=== PATIENT | female | born 1980 | race African-American/Black ===

== ENCOUNTER 2020-07-06 06:21 | Inpatient (IN) | payer OTHER ==
[2020-07-06] VITALS (8 sets, daily range): BP systolic 117–129; BP diastolic 62–90
[~2020-07-06] VITALS: Ht 175.3 cm; Wt 73.9 kg
[~2020-07-06 06:21] MED LIST: LIDOCAINE 1% MDV 20ML VIAL SQ PRN
[2020-07-06 06:51] LABS: APPEARANCE, URINE CLEAR (CLEAR); BACTERIA, URINE AUTO NEGATIVE (NEGATIVE); BILIRUBIN, URINE AUTO NEGATIVE (NEGATIVE); BLOOD, URINE BLOOD NEGATIVE (NEGATIVE); COLOR, URINE YELLOW (YELLOW); GLUCOSE, URINE (UA) AUTO NEGATIVE (NEGATIVE); KETONE, URINE AUTO NEGATIVE (NEGATIVE); LEUKOCYTE ESTERASE, URINE AUTO NEGATIVE (NEGATIVE); MUCUS, URINE SMALL (NEGATIVE); NITRITE, URINE AUTO NEGATIVE (NEGATIVE); PROTEIN, URINE AUTO NEGATIVE (NEGATIVE); RBC, URINE AUTO 0 /HPF (0-3); SPECIFIC GRAVITY URINE AUTO 1.028 (1.002-1.035); SQUAMOUS EPITHELIAL CELL UR AU 1 /HPF (0-6); UROBILINOGEN, URINE AUTO 0.2 mg/dL (0.0-2.0); WBC, URINE AUTO 1 /HPF (0-3)
[2020-07-06 07:00] LABS: HEMATOCRIT 36.2 % (36.0-47.0); MEAN CORPUSCULAR HGB CONC 33.1 g/dl (32.0-36.5); MEAN CORPUSCULAR VOLUME 90.5 fl (80.0-96.0); PLATELET COUNT, AUTOMATED 318 10^3/uL (150-450); WHITE BLOOD COUNT 5.6 10^3/uL (4.0-10.0)
[2020-07-06] MEDS ORDERED: LR 1,000 ML IV ONE (07:00)
[2020-07-06] MEDS ORDERED: MIDAZOLAM INJ 2MG/2ML VIAL (J2250 PER 1MG) As Ordered ONE (07:15)
[2020-07-06] MEDS ORDERED: ONDANSETRON 4MG/2ML VIAL As Ordered ONE (07:15)
[2020-07-06] MEDS ORDERED: propofoL 200 MG/20 ML VIAL As Ordered ONE (07:15)
[2020-07-06] MEDS ORDERED: KETOROLAC 60MG 2ML VIAL As Ordered ONE (07:15)
[2020-07-06] MEDS ORDERED: dexameTHASONE 4 MG/ML 1ML VIAL (J1100 PER 1MG) As Ordered ONE (07:15)
[2020-07-06] MEDS ORDERED: ACETAMINOPHEN 1000MG 100ML IV BTL (OFIRMEV) (J0131 PER 10MG) As Ordered ONE (07:15)
[2020-07-06] MEDS ORDERED: ROCURONIUM BROMIDE 50 MG/5 ML VIAL As Ordered ONE ×2 (07:15→08:58)
[2020-07-06] MEDS ORDERED: SUGAMMADEX SODIUM 500 MG/5 ML VIAL (BRIDION) As Ordered ONE (07:15)
[2020-07-06] MEDS ORDERED: LIDOCAINE 2% 100MG/5ML SDV (FOR ANES.) As Ordered ONE (07:15)
[2020-07-06] MEDS ORDERED: fentaNYL 100 MCG/2 ML INJECTION (J3010) As Ordered ONE (07:15)
[2020-07-06] MEDS ORDERED: BUPIVACAINE LIPOSOME/PF 1.3% 20ML VIAL (13.3MG/ML)(EXPAREL)(C9290 PER1MG) As Ordered ONE (07:31)
[2020-07-06] MEDS ORDERED: HYDROmorphone HCL 2 MG/ML 1ML VIAL (J1170) As Ordered ONE (08:27)
[2020-07-06] MEDS ORDERED: fentaNYL 100 MCG/2 ML INJECTION (J3010) IV PRN (11:30)
[2020-07-06] MEDS ORDERED: oxyCODONE 5MG TAB PO PRN (11:30)
[2020-07-06] MEDS ORDERED: LR 1,000 ML IV SCH (11:30)
[2020-07-06] MEDS ORDERED: ONDANSETRON 4MG/2ML VIAL IV PRN (11:30)
[2020-07-07 02:00] VITALS: BP 102/57
[2020-07-07 06:00] VITALS: BP 119/75
[2020-07-07 06:37] LABS: BASO % 0.3 % (0.0-1.0); EOS # 0.1 10^3/uL (0.0-0.5); EOS % 0.8 % (0.0-3.0); HEMATOCRIT 28.3 % (36.0-47.0); LYMPH # 2.3 10^3/uL (1.5-5.0); LYMPH % 22.6 % (24.0-44.0); MEAN CORPUSCULAR HEMOGLOBIN 29.9 pg (27.0-33.0); MEAN CORPUSCULAR HGB CONC 32.9 g/dl (32.0-36.5); MONO # 0.8 10^3/uL (0.0-0.8); MONO % 7.7 % (0.0-5.0); NEUTROPHILS % 68.1 % (36.0-66.0); PLATELET COUNT, AUTOMATED 246 10^3/uL (150-450); RED BLOOD COUNT 3.11 10^6/uL (4.00-5.40); WHITE BLOOD COUNT 10.3 10^3/uL (4.0-10.0)
[2020-07-07 06:43] LABS: HEMOGLOBIN 9.3 g/dl (12.0-15.5)
[2020-07-07 10:00] VITALS: BP 108/65
[2020-07-07 14:00] VITALS: BP 132/74
--- NOTE | 2020-07-07 19:19 | IPNPDOC ---
Text Note Date of Service The patient was seen on 07/07/20. NOTE 40yo G0 POD#1 s/p LORI, BS, cystoscopy for symptomatic fibroid uterus and cerv ical dysplasia. Patient reports her pain has been controlled on the toradol and percocet, she did not require any dilaudid overnight. She has ambulated OOB but has been using a walker due to pain. She had her nye removed and has been able to void spontaneously. She has been tolerating a regular diet well. She reports +flatus, denies BM. She reports only spotting VB. ROS: Denies fevers, chills, COX, chest pain, SOB, n/v, leg pain Vitals: Normotensive, afebrile UOP: adequate on nye, has met DTV PE: Gen: well-appearing, resting comfortably in bed in NAD HEENT: NC/AT, airway patent and self-maintained ABD: soft, non-distended, appropriately tender to palpation Incision: dressing removed, steri strips in place, incision well-approximated : no edema, scant bleeding noted on peripad A/P: 40yo G0 POD#1 s/p LORI, BS cysto for [facility] clinically doing well. CBC showing appropriate decrease from EBL. Normotensive, afebrile. -Transition to all oral pain medications -Abdominal binder for pain control/support to stop using walker -Encourage regular diet and PO hydration as tolerated -Encourage ambulation OOB as tolerated -Monitor vitals q4h and PRN -Discharge planning for tomorrow VS,Fishbone, I+O VS, Fishbone, I+O Laboratory Tests 07/07/20 06:08 Vital Signs Date Time Temp Pulse Resp B/P (MAP) Pulse Ox O2 Delivery O2 Flow Rate FiO2 07/07/20 17:29 16 07/07/20 14:00 97.4 76 132/74 (93) 99 Room Air 07/06/20 11:02 10 I&O- Last 24 Hours up to 6 AM 07/07/20 06:00 Intake Total 4020 ml Output Total 3700 ml Balance 320 ml AMIE LOPEZ DO Jul 07, 2020 19:19
--- NOTE | 2020-07-07 19:45 | ROOPDOC ---
[facility] Report Of Operation Report of Operation DATE OF PROCEDURE: 07/06/20 PREPROCEDURE DIAGNOSES: 1. Symptomatic fibroid uterus 2. Cervical carcinoma in situ 3. Pelvic pain 4. Dyspareunia POSTPROCEDURE DIAGNOSES: 1. Symptomatic fibroid uterus 2. Cervical carcinoma in situ 3. Pelvic pain 4. Dyspareunia PROCEDURE: 1. Total abdominal hysterectomy 2. Bilateral salpingectomy 3. Cystoscopy SURGEON: So Fulton DO FINISHING TRIMMER: Yonis Zepeda DO ANESTHESIA: General ESTIMATED BLOOD LOSS: Approximately 550 mL. FLUIDS: 1800ml LR URINE OUTPUT: 100ml COMPLICATIONS: None FINDINGS: Enlarged lobular multifibroid uterus weighing 994g. Normal bilateral ovaries and fallopian tubes. Uterus was so large, amputation of the uterus from the cervix was performed. The cervix was removed separately intact. The vaginal cuff required intra-abdominal and vaginal repair for hemostasis to close due to size of uterus and cervix. Normal-appearing appendix seen. Cystoscopy revealed brisk bilateral ureteral jet flow and no defects/sutures in the bladder. DESCRIPTION OF PROCEDURE: The risks, benefits, indications and alternatives of the procedure were reviewed with the patient and informed consent was obtained. The patient was taken to the operating room where general anesthesia was obtained without difficulty. The patient was then placed in the low lithotomy position using Eric Stirrups. An exam under anesthesia was then performed and significant for a midline, _18_- week sized, axial uterus. An abdominal and vaginal prep were then performed in the normal, sterile fashion and a nye catheter was placed. A Pfannenstiel skin incision was then made and carried down to the underlying layer of fascia using electrocautery. The fascia was entered with Bovie cautery and extended bilaterally. The underlying rectus fascia and muscle layers were then in the midline and peritoneum identified, grasped with two hemostats, and entered sharply using Metzenbaum scissors. The peritoneal incision was then extended superiorly and inferiorly using Bovie cautery. Manual and visual examination of the pelvis was notable for a large lobular fibroid uterus, normal appendix, normal-appearing bilateral ovaries and fallopian tubes. The bowel was then packed from the operating field using moist laps. A Mobius self-retaining retractor was placed into the abdominal cavity and opened for pelvic exposure. Two Peon clamps were placed across each fallopian tube and utero-ovarian ligament immediately lateral to the uterus, and the uterus was elevated to the level of the incision. The round ligaments were bilaterally grasped with Grundy clamps near the uterine cornua. The round ligaments were then suture ligated with 0-vicryl and transected using electrocautery bilaterally, allowing entry into the broad ligament. The anterior leaves of the broad ligament were then incised along the bladder reflection on both sides to the midline, and the posterior leaves of the broad ligament were incised 1-2 cm inferiorly. The pararectal spaces were then developed. A window was created in an avascular plane of the broad ligament, below and parallel to the IP ligament, and above the ureter. The fallopian tube and utero-ovarian ligaments were then doubly clamped as close as possible to the uterine corpus, transected with the Ligasure, and suture ligated with O-vicryl on both sides. The pedicles were then reinspected, with excellent hemostasis noted. The bladder was then gently dissected off the lower uterine segment and cervix using a sponge stick, until the endopelvic fascia was visualized. The uterine arteries were then identified along the lateral aspects of the uterus at the level of the isthmus and skeletonized. The uterine arteries were then doubly clamped, transected with the Ligasure, and suture ligated on both sides. Hemostasis was assured. The cardinal ligaments were then clamped, transected using the Ligasure, and suture ligated bilaterally. Finally, the uterosacral ligaments were clamped, transected with the Ligasure, and suture ligated bilaterally. Hemostatis was noted. Given the size and bulk of the uterus, decision was then made to proceed with amputation of the uterus. The uterine fundus was sharply amputated from the cervix and the multi-lobular uterus freed from the pelvis. The cervix was then grasped with Eliseo clamps. Curved clamps were placed across the vagina just under the cervix and the uterus and cervix were amputated using Radha scissors. The vaginal cuff angles were closed and transfixed to the ipsilateral uterosacral and cardinal ligaments. The remainder of the cuff was closed using 0-vicryl in an interrupted fashion with care given to incorporate the anterior pubocervical fascia and the posterior rectovaginal fascia. The abdomen was then copiously irrigated with warm saline. All pedicles were noted to be hemostatc. All packing and instruments were removed from the ab domen. A cystoscopy was performed notable for bilateral brisk ureteral jet flow and no lesions/defects of the bladder mucosa. The nye catheter was replaced after completion of the cystoscopy. Gloves were exchanged and attention returned to the abdomen. The fascia was reapproximated using 0-vicryl in a running fashion. The subcutaneous tissue was reapproximated using 3-0 vicryl in an interrupted fashion. The skin was closed with 4-0 monocryl in a running fashion. A manual exam was then performed and the vagina demonstrated excellent suspension and elevation however significant bleeding was noted. A speculum was placed into the vagina which revealed part of the vaginal mucosa had failed to incorporate into the vaginal cuff. The vaginal cuff was made hemostatic with 0- vicryl in running, locked fashion. A vaginal sweep was performed and confirmed no retained foreign objects remained in the vagina. At the completion of the case, sponge, lap, needle, and instrument counts were correct x2. The patient was awoken from anesthesia, extubated and taken to PACU in stable condition. SO FULTON DO Jul 06, 2020 11:06
[2020-07-07 22:00] VITALS: BP 120/80
[2020-07-08 02:00] VITALS: BP 147/73
[2020-07-08 04:00] VITALS: BP 136/78
[2020-07-08 06:00] VITALS: BP 107/75
--- NOTE | 2020-07-08 08:15 | IPNPDOC ---
Text Note Date of Service The patient was seen on 07/08/20. NOTE 40yo G0 POD#2 s/p LORI, BS, cystoscopy for symptomatic fibroid uterus and cervical dysplasia. Patient reports having a very difficult night and endorsing minimal support from nursing staff. She is very upset that she was not able to shower yesterday evening and that nursing staff would not come assist her. She was given an abdominal binder but was not instructed on how to apply or assisted in placing by nursing staff and therefore did not use it. (Nursing staff reported to provider that patient did not tolerate abdominal binder due to pain.) She continued to use the walker to assist with ambulation only to the bathroom overnight, she did not ambulate around the waller. She also endorsed chest pain overnight but it has since resolved after taking maalox and resting i n bed. She has continued to void spontaneously several times overnight. She has been tolerating a regular diet well. She reports +flatus, denies BM. She reports only spotting VB. Given her frustrations with her care and limitations overnight, she is concerned about discharge home today. ROS: Denies fevers, chills, COX, chest pain, SOB, n/v, leg pain Vitals: Normotensive, afebrile UOP: adequate with multiple spontaneous voids PE: Gen: well-appearing, resting comfortably in bed in NAD HEENT: NC/AT, airway patent and self-maintained ABD: soft, non-distended, appropriately tender to palpation Incision: steri strips in place, incision well-approximated : no edema, scant bleeding noted on peripad Ext: SCDs on and working, no calf tenderness, no edema A/P: 40yo G0 POD#2 s/p LORI, BS cysto for [facility]. Normotensive, afebrile and clinically stable. I assisted patient with placement of abdominal binder and patient was able to get out of bed without assistance and significant improvement in pain with ambulation without need for walker. She walked around the waller with me and then was able to sit in chair at bedside endorsing much improvement in her pain. We discussed discharge planning that if she feels more comfortable after eating, getting a shower, and gains more confidence with ambulation using the abdominal binder, will discharge home today but if she does not feel confident in going home, will consider discharge home tomorrow. -Continue current pain mgmt -Abdominal binder for pain control/support - nursing staff asked to remove walkers from room to avoid use -Encourage regular diet and PO hydration as tolerated -Encourage ambulation OOB as tolerated -Monitor vitals q4h and PRN -Discharge planning for later today/tomorrow VS,Fishbone, I+O VS, Fishbone, I+O Vital Signs Date Time Temp Pulse Resp B/P (MAP) Pulse Ox O2 Delivery O2 Flow Rate FiO2 07/08/20 06:00 98.4 63 18 107/75 (86) 99 Room Air 07/06/20 11:02 10 I&O- Last 24 Hours up to 6 AM 07/08/20 06:00 Intake Total 1720 ml Output Total 2450 ml Balance -730 ml AMIE LOPEZ DO Jul 08, 2020 08:15
[2020-07-08 10:00] VITALS: BP 132/80
[2020-07-08 14:00] VITALS: BP 134/81
--- NOTE | 2020-07-08 15:44 | DS.PDOC ---
Discharge Summary General Date of Admission Jul 06, 2020 at 06:21 Date of Discharge 07/08/2020 Attending Physician: AMIE LOPEZ DO Discharge Summary PROCEDURES PERFORMED DURING STAY: 1. Total abdominal hysterectomy 2. BIlateral salpingectomy 3. Cystoscopy ADMITTING DIAGNOSES: 1. Symptomatic fibroid uterus 2. Pelvic pain 3. Cervical dysplasia 4. Dyspareunia DISCHARGE DIAGNOSES: 1. Symptomatic fibroid uterus 2. Pelvic pain 3. Cervical dysplasia 4. Dyspareunia 5. Anemia COMPLICATIONS/CHIEF COMPLAINT: Fibroid Uterus,Cervical Dysplasia. HOSPITAL COURSE: Millie was admitted to the pre-op surgical unit where she was prepped for surgery. She was then taken to the operating room where she underwent and uncomplicated total abdominal hysterectomy, bilateral salpingectomy, and cystoscopy. She was then awoken from general anesthesia and taken to the PACU for immediate post-operative recovery. She was then transferred to the inpatient surgical waller for continued post-operative care. She was transitioned to oral pain medications and had her nye catheter removed on post-operative day #1. On day of discharge, she was ambulating, tolerating a regular diet, voiding spontaneously, and pain controlled on oral pain medications. She was discharged home in stable condition with strict return precautions reviewed. DISCHARGE MEDICATIONS: Please see below. ALLERGIES: Please see below. PHYSICAL EXAMINATION ON DISCHARGE: Please see progress note from 07/08/2020 VITAL SIGNS: Please see below. LABORATORY DATA: Please see below. ACTIVITY: Pelvic rest x6 weeks, no lifting >15lbs for 6-8 weeks DIET: regular as tolerated DISCHARGE PLAN: to home with support from family/friends DISPOSITION: to home DISCHARGE CONDITION: Stable TIME SPENT ON DISCHARGE: Greater than 20 minutes. Vital Signs/I&Os Vital Signs Date Time Temp Pulse Resp B/P (MAP) Pulse Ox O2 Delivery O2 Flow Rate FiO2 07/07/20 17:29 16 07/07/20 14:00 97.4 76 132/74 (93) 99 Room Air 07/06/20 11:02 10 I&O- Last 24 Hours up to 6 AM 07/07/20 06:00 Intake Total 4020 ml Output Total 3700 ml Balance 320 ml Laboratory Data Labs 24H Laboratory Tests 2 07/07/20 06:08: Immature Granulocyte % (Auto) 0.5, Neutrophils (%) (Auto) 68.1H, Lymphocytes (%) (Auto) 22.6L, Monocytes (%) (Auto) 7.7H, Eosinophils (%) (Auto) 0.8, Basophils (%) (Auto) 0.3, Neutrophils # (Auto) 7.0, Lymphocytes # (Auto) 2.3, Monocytes # (Auto) 0.8, Eosinophils # (Auto) 0.1, Basophils # (Auto) 0.0, Nucleated Red Blood Cells % (auto) 0.0 CBC/BMP Laboratory Tests 07/07/20 06:08 Discharge Medications No Active Prescriptions or Reported Meds Allergies Coded Allergies: No Known Allergies (Unverified , 06/29/20) AMIE LOPEZ DO Jul 07, 2020 19:57
== END 2020-07-08 18:03 | disposition home or self-care (01) | DRG 743 ==
LOC: M OR 06:21 → M MSPAV 12:27
PROC: 0UT70ZZ Resection of Bilateral Fallopian Tubes, Open Approach (ICD-10-PCS; 2020-07-06)
PROC: 0TJB8ZZ Inspection of Bladder, Via Natural or Artificial Opening Endoscopic (ICD-10-PCS; 2020-07-06)
PROC: 0UT90ZZ Resection of Uterus, Open Approach (ICD-10-PCS; principal; 2020-07-06 07:30)
PROC: 0UTC0ZZ Resection of Cervix, Open Approach (ICD-10-PCS; 2020-07-06 07:30)
DX: D25.0 Submucous leiomyoma of uterus (principal); D25.2 Subserosal leiomyoma of uterus; R10.2 Pelvic and perineal pain; N94.10 Unspecified dyspareunia; N87.9 Dysplasia of cervix uteri, unspecified; D64.9 Anemia, unspecified